=== PATIENT | female | born 1990 | race Caucasian/White ===

== ENCOUNTER 2017-06-13 11:44 | Outpatient (CLI) | payer OTHER ==
[~2017-06-13 11:44] MED LIST: ATABEX PRENATAL1 TAB; ENDOCET 5/325 T1 TAB PO
== END 2017-06-13 11:54 | disposition home or self-care (01) ==
LOC: LAB 11:44
DX: Z34.80 Encounter for supervision of other normal pregnancy, unspecified trimester (principal)

== ENCOUNTER 2017-06-13 12:18 | Outpatient (CLI) | payer OTHER | END 2017-06-13 12:21 | disposition home or self-care (01) | LOC: SONOGRAMA 12:18 | DX: Z34.80 Encounter for supervision of other normal pregnancy, unspecified trimester (principal); O20.0 Threatened abortion; E04.9 Nontoxic goiter, unspecified ==

== ENCOUNTER 2017-06-15 09:48 | Outpatient (CLI) | payer OTHER | END 2017-06-15 09:56 | disposition home or self-care (01) | LOC: LAB 09:48 | DX: Z34.80 Encounter for supervision of other normal pregnancy, unspecified trimester (principal) ==